=== PATIENT | male | born 1955 | race Caucasian/White ===

== ENCOUNTER 2016-06-09 15:59 | Emergency (ER) | payer OTHER ==
[~2016-06-09] VITALS: Ht 182.9 cm; Wt 136.1 kg
[~2016-06-09 15:59] MED LIST: DIAZEPAM5 MG PO; DILAUDID2 MG PO; ELIQUIS5 MG PO; GLIMEPIRIDE4 MG PO; JANUMET 1000 MG1 TAB PO; LISINOPRIL20 MG PO; LISINOPRIL30 MG PO; LISINOPRIL40 MG PO; LOPRESSOR 25MG25 MG PO; LYRICA150 MG PO; MIRALAX17 GM PO; NAPRELAN750 MG PO; NAPROXEN SODIU550 MG PO; OXYCODONE HCL30 MG PO; PRINIVIL10 MG PO; Senokot S PO; TOPROL XL25 MG PO; TRICOR 145 MG145 MG PO; VITAB121000 PO; [UNRECOGNIZED DRUG - OTHER] TOP
--- NOTE | 2016-06-09 17:02 | ED UPPER/LOWER EXTREMITY COMPL ---
History of Present Illness General Chief Complaint: Lower Extremity Problems Stated Complaint: LT LEG PAIN Source: patient Exam Limitations: no limitations Vital Signs & Intake/Output Vital Signs & Intake/Output Vital Signs Date Time Temp Pulse Resp B/P Pulse O2 O2 Flow FiO2 Ox Delivery Rate 06/09 1859 97.7 85 16 135/73 96 Room Air 06/09 1730 Room Air 06/09 1606 97.6 92 20 158/80 98 Room Air Allergies Coded Allergies: NO KNOWN ALLERGIES (06/09/16) Reconcile Medications Alprazolam 0.5 MG TABLET 1 TAB PO BID PRN ANXIETY (Reported) Apixaban (Eliquis) 5 MG TABLET 1 TAB PO BID BLOOD THINNER (Reported) Cephalexin 500 MG CAPSULE 1 CAP PO TID ANTIBIOTIC (Reported) Cephalexin (Keflex) 500 MG CAPSULE 1 CAP PO 4 TIMES/DAY CELLULITIS Fenofibrate Nanocrystallized (Fenofibrate) 145 MG TABLET 1 TAB PO DAILY TRIGLYCERIDES/CHOLESTEROL (Reported) Glimepiride 4 MG TABLET 1 TAB PO DAILY DM (Reported) Hydrochlorothiazide 25 MG TABLET 1 TAB PO DAILY EDEMA (Reported) Linagliptin (Tradjenta) 5 MG TABLET 1 TAB PO DAILY DM (Reported) Lisinopril 40 MG TABLET 1 TAB PO DAILY BP (Reported) Metoprolol Tartrate 25 MG TABLET 1 TAB PO BID HEART (Reported) Naproxen Sodium (Naprelan) 750 MG TBMP.24HR 1 TAB PO DAILY BURSITIS (Reported ) with food Oxycodone HCl 30 MG TABLET 1 TAB PO 4XDP PRN PAIN (Reported) Oxycodone HCl/Acetaminophen (Percocet 5-325 MG Tablet) 5 MG-325 MG TABLET 1-2 TAB PO Q6P PRN PAIN Pregabalin (Lyrica) 150 MG CAPSULE 2 CAP PO QPM NEUROPATHY (Reported) Sulfamethoxazole/Trimethoprim (Bactrim Ds Tablet) 800 MG-160 MG TABLET 1 TAB PO BID CELLULITIS Triage Note: TRIAGE: PT TO ER C/C PAIN AND WOUND TO L ANKLE. WAS TREATED WITH ABX 05/11/2016. FELT IT RETURNING 05/23 BUT STATES THE DOCTOR "DIDN'T WANT TO PHONE IN ANY PRESCRIPTION FOR HIM". SAW DR CASTRO THIS MORNING AND WAS REFERRED TO THE ER FOR EVAL OF "SEVERE CELLULITIS AND ULCERATION OF LEFT LEG AND FOR MANAGEMENT OF ACUTE HYPERGLYCEMIA IN THE SETTING OF ACUTE INFECTION". F/S WAS 379 IN THE MD OFFICE. PT WITH HX INCLUDING NIDDM. TAKES OXYCODONE 30 MG FOR PAIN CONTROL. Triage Nurses Notes Reviewed? yes Onset: Abrupt Duration: week(s): (1), constant, continues in ED Timing: recent history Severity: moderate HPI: 61-year-old male with a history of diabetes hypertension and chronic wounds to lower extremities comes in for further evaluation symptoms by primary care. Patient reports that he has a "wound on his left leg. It has been there since 2014 when he had a fracture in that leg. Patient reports that last week he had a low-grade temperature of 99.9 and his doctor started him on cephalexin. He reports that the swelling in the left lower leg has improved and looks at his normal baseline. Patient reports that he saw his primary today who sent him here for further evaluation. Denies any fever chills or vomiting or flulike symptoms currently. Patient reports that his leg looks however normally does. Denies any other associated symptoms. Patient also reports that he sees a vascular doctor for problems with his lower legs. (CASSI LINDQUIST) Past History Travel History Traveled to [place] past 21 day No Medical History Any Pertinent Medical History? 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 Carpal tunnel syndrome 2. Rotator cuff tear repair Psychosocial History Who do you live with Spouse What is your primary language Georgian Tobacco Use: Never used ETOH Use: denies use Illicit Drug Use: denies illicit drug use Family History Family History, If Any: FATHER (father of liver cancer). MOTHER (mother of adenocarcinoma). Hx Contributory? No (CASSI LINDQUIST) Review of Systems Review of Systems Constitutional: Reports: no symptoms. EENTM: Reports: no symptoms. Respiratory: Reports: no symptoms. Cardiovascular: Reports: no symptoms. Gastrointestinal/Abdominal: Reports: no symptoms. Genitourinary: Reports: no symptoms. Musculoskeletal: Reports: see HPI. Skin: Reports: see HPI. Neurological/Psychological: Reports: no symptoms. Hematologic/Endocrine: Reports: no symptoms. Immunological: Reports: no symptoms. All Other Systems: Reviewed and Negative (CASSI LINDQUIST) Physical Exam Physical Exam General Appearance: well developed/nourished Head: atraumatic Eyes: Bilateral: normal appearance. Ears, Nose, Throat: normal ENT inspection, hearing grossly normal Neck: normal inspection Cardiovascular/Respiratory: no respiratory distress Back: normal inspection Leg Right: left lower extremity shiny, erythematous, no warmth, large scab with some black tissue, decreased cap refill in bilateral lower feet, dorsalis pedis one plus, Skin: intact, normal color, warm/dry Lymphatic: no anterior cervical kathia (CASSI LINDQUIST) Progress Differential Diagnosis: arterial insufficiency, cellulitis, CHF, contusion, dislocation, fracture, gout, septic arthritis, sprain Plan of Care: Orders Procedure Date/time Status CBC WITHOUT DIFFERENTIAL 06/09 1700 Complete BASIC METABOLIC PANEL 06/09 1700 Complete Laboratory Tests 06/09/16 1716: Anion Gap 12, Estimated GFR > 60, BUN/Creatinine Ratio 24.2, Glucose 289 H, Calcium 9.6, CBC w Diff NO MAN DIFF REQ, RBC 4.48 L, MCV 90.8, MCH 30.3, RDW 13.6, MPV 13.1 H, Gran % 67.9, Lymphocytes % 18.7 L, Monocytes % 9.9 H, Eosinophils % 2.9, Basophils % 0.6, Absolute Granulocytes 4.1, Absolute Lymphocytes 1.1 L, Absolute Monocytes 0.6, Absolute Eosinophils 0.2, Absolute Basophils 0, PUBS MCHC 33.3 Departure Departure Disposition: HOME OR SELF CARE Condition: Stable Clinical Impression Primary Impression: Cellulitis of left lower extremity Referrals: DON CASTRO (PCP/Family) [facility] Additional Instructions: Take Bactrim and Keflex as prescribed. Take Percocet for pain. Follow-up with wound care center. Return immediately if any increased redness, fever or chills , vomiting, or any other concerns. It is extremely important that you follow up with wound care center. Please go over all results of today's visit with your primary care doctor. Contact your primary care doctor to let them know you were here in the emergency room. There may be nonspecific findings which may not be related to your visit today here in the emergency room but may require further evaluation and chronic monitoring by your primary care doctor. If you had a laceration today the chance of foreign body always remains. You should follow-up with your primary care doctor for recheck in 3-5 days for a wound check. If you had an x-ray done there is a chance that a fracture could have been missed on initial read and you should follow-up with your primary care doctor for repeat x-rays if symptoms persist. If your blood pressure was elevated here in the emergency room please have rechecked by her primary care doctor within the next 48 hours by your primary care doctor. If you were prescribed a narcotic here in the emergency room or any type of controlled substances you're not allowed to drive while taking this medication or operate any type of heavy machinery. Narcotics can make you feel lightheaded dizziness nausea and can cause constipation. You may need to slat pickler a stool softener. Thank you for choosing [facility] emergency room. Please return to the emergency room immediately if you have any other concerns worsening of symptoms. Departure Forms: Customer Survey General Discharge Information Prescriptions: Current Visit Scripts Cephalexin (Keflex) 1 CAP PO 4 TIMES/DAY #16 CAP Sulfamethoxazole/Trimethoprim (Bactrim Ds Tablet) 1 TAB PO BID #14 TAB Oxycodone HCl/Acetaminophen (Percocet 5-325 MG Tablet) 1-2 TAB PO Q6P PRN PAIN #15 TAB Comments 06/09/2016 7:30:45 PM Patient clinically looks well. Patient is nontoxic-appearing. Patient is in no apparent distress. Patient has diabetes and chronic wound healing issues as well as peripheral vascular disease. Wound is at his normal baseline. No white count. Afebrile. I do not feel patient requires admission at this time. Patient needs wound care. Patient may need stents in his leg but he is currently being evaluated by a vascular doctor and being worked up for that. No acute vascular compromise that is emergent tonight. Patient understands and agrees the plan of care. Follow-up wound care. Contact vascular doctor. Added Bactrim to antibiotics. (CASSI LINDQUIST) PA/BILLBOARD ERECTOR HELPER Co-Sign Statement Statement: ED Attending supervision documentation- [] I saw and evaluated the patient. I have also reviewed all the pertinent lab results and diagnostic results. I agree with the findings and the plan of care as documented in the PA's/BILLBOARD ERECTOR HELPER's documentation. [X] I have reviewed the ED Record and agree with the PA's/BILLBOARD ERECTOR HELPER's documentation. [] Additions or exceptions (if any) to the PAs/BILLBOARD ERECTOR HELPER's note and plan are summarized below: [] (IVANIA HERNANDEZ,TOM)
[2016-06-09] MEDS ORDERED: ELIQUIS5 M1 PO (17:03)
[2016-06-09] MEDS ORDERED: FENOFIBRATE145 M1 PO (17:04)
[2016-06-09] MEDS ORDERED: GLIMEPIRIDE4 M1 PO (17:04)
[2016-06-09] MEDS ORDERED: HYDROCHLOROTHIA25 M1 PO (17:05)
[2016-06-09] MEDS ORDERED: OXYCODONE HCL30 M1 PO (17:06)
[2016-06-09] MEDS ORDERED: LISINOPRIL40 M1 PO (17:06)
[2016-06-09] MEDS ORDERED: ALPRAZOLAM0.5 M4 PO (17:06)
[2016-06-09] MEDS ORDERED: TRADJENTA5 M1 PO (17:07)
[2016-06-09] MEDS ORDERED: METOPROLOL TART25 M1 PO (17:08)
[2016-06-09] MEDS ORDERED: NAPRELAN PO (17:08)
[2016-06-09] MEDS ORDERED: LYRICA150 M1 PO (17:09)
[2016-06-09] MEDS ORDERED: CEPHALEXIN500 M3 PO (17:10)
[2016-06-09 17:37] LABS: ABSOLUTE BASOPHIL COUNT 0 /CUMM (0.0-0.2); ABSOLUTE EOSINOPHIL COUNT 0.2 /CUMM (0.0-0.7); ABSOLUTE GRANULOCYTE CT 4.1 /CUMM (1.4-6.5); ABSOLUTE LYMPH COUNT 1.1 /CUMM (1.2-3.4); ABSOLUTE MONOCYTE COUNT 0.6 /CUMM (0.10-0.60); BASOPHIL % 0.6 % (0.0-2.0); EOSINOPHIL % 2.9 % (0-5); GRANULOCYTE % 67.9 % (42.2-75.2); HEMATOCRIT 40.7 % (42-52); MEAN CORPUSCULAR HGB 30.3 PG (27.0-31.0); MEAN CORPUSCULAR HGB CONC 33.3 G/DL (33.0-37.0); MEAN CORPUSCULAR VOLUME 90.8 FL (80.0-94.0); MEAN PLATELET VOLUME 13.1 FL (7.4-10.4); PLATELET COUNT 80 /CUMM (130-400); RBC DISTRIBUTION WIDTH 13.6 % (11.5-14.5); RED BLOOD CELL CT 4.48 /CUMM (4.70-6.10)
[2016-06-09] MEDS ORDERED: BACTRIM DS TAB1 EACH PO (18:48)
[2016-06-09] MEDS ORDERED: PERCOCET 5-3251 EACH PO (18:48)
[2016-06-09] MEDS ORDERED: KEFLEX500 M1 PO (18:48)
[2016-06-09 18:59] VITALS: BP 135/73
== END 2016-06-09 19:21 ==
LOC: ERH 15:59
PROVIDERS: Physician Assistant Medical
DX: L03.116 Cellulitis of left lower limb (principal)
CPT/HCPCS: 96365

== ENCOUNTER 2016-08-08 14:59 | Emergency (ER) | payer OTHER ==
[~2016-08-08] VITALS: Ht 185.4 cm; Wt 142.9 kg
[~2016-08-08 14:59] MED LIST changes: +ALPRAZOLAM0.5 M4 PO; +BACTRIM DS TAB1 EACH PO; +CEPHALEXIN500 M3 PO; +ELIQUIS5 M1 PO; +FENOFIBRATE145 M1 PO; +GLIMEPIRIDE4 M1 PO; +HYDROCHLOROTHIA25 M1 PO; +KEFLEX500 M1 PO; +LISINOPRIL40 M1 PO; +LYRICA150 M1 PO; +METOPROLOL TART25 M1 PO; +NAPRELAN PO; +OXYCODONE HCL30 M1 PO; +PERCOCET 5-3251 EACH PO; +TRADJENTA5 M1 PO
--- NOTE | 2016-08-08 15:41 | ED GENERAL ADULT ---
History of Present Illness General Chief Complaint: Lower Extremity Injury Stated Complaint: PT CAN'T WALK Source: patient Exam Limitations: no limitations Vital Signs & Intake/Output Vital Signs & Intake/Output Vital Signs Date Time Temp Pulse Resp B/P B/P Pulse O2 O2 Flow FiO2 Mean Ox Delivery Rate 08/08 1833 98.7 87 18 144/67 96 Room Air 08/08 1508 97.9 80 22 115/71 96 Allergies Coded Allergies: NO KNOWN ALLERGIES (06/09/16) Reconcile Medications Alprazolam 1 MG TABLET 2 TAB PO QPM SLEEP (Reported) Apixaban (Eliquis) 5 MG TABLET 1 TAB PO BID BLOOD THINNER (Reported) Fenofibrate Nanocrystallized (Fenofibrate) 145 MG TABLET 1 TAB PO DAILY TRIGLYCERIDES/CHOLESTEROL (Reported) Fluticasone Propionate (Flovent Diskus) 100 MCG BLST.W.DEV 1-2 PUF INH BID COUGH/RESPIRATORY (Reported) Glimepiride 4 MG TABLET 1 TAB PO DAILY DM (Reported) Hydrochlorothiazide 25 MG TABLET 1 TAB PO DAILY EDEMA (Reported) Linagliptin (Tradjenta) 5 MG TABLET 1 TAB PO DAILY DM (Reported) Metoprolol Tartrate 25 MG TABLET 1 TAB PO BID HEART (Reported) Oxycodone HCl 30 MG TABLET 1 TAB PO 4XDP PRN PAIN (Reported) Oxycodone HCl/Acetaminophen (Percocet 5-325 MG Tablet) 5 MG-325 MG TABLET 1 TAB PO BID PRN pain Pregabalin (Lyrica) 150 MG CAPSULE 2 CAP PO QPM NEUROPATHY (Reported) Valsartan (Diovan) 320 MG TABLET 1 TAB PO DAILY BP (Reported) Triage Note: PER PT CANT WALK L LEG PAINFUL ALTHOUGH PT DROVE TO ED, PER PT FX IT 2 YRS AGO THINKS, SCREWS AND JULITO ARE UNDONE Triage Nurses Notes Reviewed? yes Onset: 2 days ago Duration: constant, getting worse Timing: LLE fx 2 yrs ago Severity: severe Modifying Factors: Improves With: rest. Worsens With: movement. HPI: Patient is a 61-year-old male with a history of hypertension, hyperlipidemia, A. fib (on eliquis), and s/p palcement of orthopedic hardware to the LLE for prior fracture to the upper portion of the LLE 2 years ago (pt unsure what exactly was fx) presenting with bilateral leg pain and difficulty with ambulation 2 days. Patient reports pain began in his left thigh, began using his right leg more to compensate, subsequently developed right leg pain a day later. Patient ambulates with a walker at baseline, but reports he is recently been unable to ambulate. However states that he was able to tried himself to the ED today. Had recent imaging in the last 1-2 months with an orthopedist that showed "2 broken screws." Patient was asymptomatic at the time, orthopedist recommended no intervention at that time, and the patient should be evaluated pain developed. Denies any numbness or paresthesias. He has tried no medication for pain relief. Patient denies any recent falls trauma or etiology of his pain Patient does state that he was able to walk to his private vehicle drive to the emergency room. (GOKUL FISHER) Past History Travel History Traveled to [place] past 21 day No Medical History Any Pertinent Medical History? 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 Carpal tunnel syndrome 2. Rotator cuff tear repair Psychosocial History Who do you live with Spouse What is your primary language Bolivian Tobacco Use: Never used Family History Family History, If Any: FATHER (father of liver cancer). MOTHER (mother of adenocarcinoma). Hx Contributory? Yes (prior LLE fx) (GOKUL FISHER) Review of Systems Review of Systems Constitutional: Reports: no symptoms. EENTM: Reports: no symptoms. Respiratory: Reports: no symptoms. Cardiovascular: Reports: no symptoms. GI: Reports: no symptoms. Genitourinary: Reports: no symptoms. Musculoskeletal: Reports: muscle pain. Skin: Reports: no symptoms. Neurological/Psychological: Reports: no symptoms. Hematologic/Endocrine: Reports: no symptoms. Immunologic/Allergic: Reports: no symptoms. (GOKUL FISHER) Physical Exam Physical Exam General Appearance: well developed/nourished, no apparent distress Head: atraumatic Eyes: Bilateral: normal appearance. Respiratory: normal breath sounds, lungs clear Cardiovascular: regular rate/rhythm Peripheral Pulses: 2+ radial (R), 2+ radial (L) Extremities: on exam of both lower extremities there are no abrasions/ lacerations/signs of trauma, no point tenderness to palpation, unrestricted range of motion of bilateral hip and knee joints, sensation intact, decreased motor strength symmetrically, active reflexes, palpable distal pulses. There are venous stasis changes bilaterally. Neurologic/Psych: no motor/sensory deficits, awake, alert, oriented x 3 Skin: intact, normal color, warm/dry Comments: Left hip normal inspection generalized point tenderness noted, straight leg raise performed with pain Left knee normal inspection generalized point tenderness noted mild decrease active range of motion noted with extension and flexion. Left lower extremity dermatomes intact PEDAL pulse +2 Core Measures ACS in differential dx? No CVA/TIA Diagnosis: No Severe Sepsis Present: No Septic Shock Present: No (XOCHITL VENEGAS,GOKUL) Progress Differential Diagnoses I considered the following diagnoses in my evaluation of the patient: [FX, OA, CANCER] Plan of Care: Orders Procedure Date/time Status CT LOWER EXT WO IV CONTRAST 08/09 1747 Active Patient currently is resting comfortable no apparent distress and denies any recent trauma or mechanism of injury. X-rays were resulted and which discussed results with orthopedic Dr. Charlton would LIKE patient to obtain a CT of extremity and to follow-up in office. After CT scan was resulted I again called orthopedic Dr. Charlton who advised patient to follow up with his surgeon as patient has an appointment tomorrow. Patient has persisted walkers at home. Patient agrees with disposition and plan and has no questions (XOCHITL VENEGAS,GOKUL) Diagnostic Imaging: Viewed by Me: Radiology Read, CT Scan. Radiology Impression: SEE COMMENTS Initial ED EKG: none Comments: PATIENT: MARQUIS ENCINAS PRESENT AGE: 61 PATIENT ACCOUNT NO: [id number] : 56 LOCATION: [facility] ORDERING PHYSICIAN: GOKUL VENEGAS SERVICE DATE: 08/08/16 EXAM TYPE: CAT - CT LOWER EXT WO IV CONTRAST EXAMINATION: CT LOWER EXTREMITY WITHOUT CONTRAST, HIP AND FEMUR, LEFT CLINICAL INFORMATION: Status post ORIF left hip fracture. Now with pain. COMPARISON: Plain film exam left hip today. Left hip and femur 11/12/2014. TECHNIQUE: Axial images obtained through the left hip. Coronal and sagittal reformatted images performed at the CT scanner. DLP: 4181.41 mGy-cm. FINDINGS: Patient has had placement of a compression screw and a long segment intramedullary julito through the left femur. Two fixation screws at the distal intramedullary julito at the metadiaphysis of the femur. The fracture site involves the proximal femur. There is sclerosis at the fracture line and the fracture line remains radiolucent though irregular. The fracture is nonunited. There is no acute fracture line. No soft tissue hematoma or fluid collection. There is marked degenerative joint disease of the hip. There is joint space narrowing and spurring of acetabulum and femoral head. IMPRESSION: 1. Status post ORIF left proximal femoral fracture. The left femoral fracture is nonunited with sclerosis of the fracture margins. 2. No acute fracture line. DICTATED BY: LISA MATHIAS MD DATE/TIME DICTATED:08/08/161821 MACHINIST APPRENTICE WOOD:BRIANNA DATE/TIME TRANSCRIBED:08/08/161821 CONFIDENTIAL, DO NOT COPY WITHOUT APPROPRIATE AUTHORIZATION. PATIENT: MARQUIS ECNINAS PRESENT AGE: 61 PATIENT ACCOUNT NO: [id number] : 56 LOCATION: ER ORDERING PHYSICIAN: GOKUL VENEGAS SERVICE DATE: 08/08/16 EXAM TYPE: RAD - XRY-HIP 2-3 VIEWS, LEFT EXAMINATION: XR HIP, LEFT CLINICAL INFORMATION: Left lower extremity pain. Status post ORIF left hip 2 years ago COMPARISON: Left femur and left hip 11/12/2014 TECHNIQUE: Two views of the left hip. FINDINGS: Lungs demonstrate long stem intramedullary julito with compression screw in place. The distal portion of the intramedullary julito not visualized. The remainder of the hardware intact. No acute fracture. The previously seen proximal femoral fracture has healed with residual deformity. There is partial radiolucency through the base of the cortex at the medial side of the calcar. No abnormal periosteal reaction. There is marked degenerative joint disease of the hips with near complete loss of the joint space. There is spurring subchondral sclerosis of femoral head and acetabulum. IMPRESSION: Status post ORIF left femoral fracture. Healed proximal femoral shaft fracture with residual deformity. Marked degenerative joint disease of the left hip. PATIENT: MARQUIS ENCINAS PRESENT AGE: 61 PATIENT ACCOUNT NO: [id number] : 56 LOCATION: ER ORDERING PHYSICIAN: GOKUL VENEGAS SERVICE DATE: 08/08/16 EXAM TYPE: RAD - XRY-KNEE COMPLETE LEFT EXAMINATION: XR KNEE, LEFT CLINICAL INFORMATION: Left lower extremity pain, worse with ambulation. COMPARISON: Plain films of the left femur 11/12/2014. TECHNIQUE: 5 views of the left knee. FINDINGS: Multiple views of the left knee demonstrate a partially visualized mechanical hardware within the distal left femur related to prior open reduction and internal fixation of the left femur. 2 cortical screws are visualized traversing the intramedullary nail. The screws appear fractured relative to the prior examination. There is no visible fracture or dislocation of the distal femur or of the left knee. There are moderate to severe degenerative changes involving the left knee joint, most significant within the medial tibiofemoral compartment. No visible joint effusion. IMPRESSION: Partially visualized mechanical hardware related to open reduction and internal fixation of the left femur. Interval fracture to previously identified cortical screws traversing the distal aspect of the intramedullary nail. No visible fractures involving the distal left femur. Moderate to severe degenerative changes of the left knee joint. (GOKUL FISHER) Departure Departure Disposition: HOME OR SELF CARE Condition: Stable Clinical Impression Primary Impression: Left hip pain Secondary Impressions: Left knee pain Referrals: DON CASTRO (PCP/Family) Additional Instructions: As discussed tomorrow follow-up with your established orthopedic doctor as you have an appointment. Begin the prescription of Percocet for pain, prescriptions waiting a [facility] [place]. Continue to use a walker for fall prevention. If symptoms worsen return to emergency room. Please provide your orthopedic doctor with copies of CT scan and x-ray Departure Forms: Customer Survey General Discharge Information Prescriptions: Current Visit Scripts Oxycodone HCl/Acetaminophen (Percocet 5-325 MG Tablet) 1 TAB PO BID PRN pain #12 TAB (GOKUL FISHER) PA/BELT CHANGER Co-Sign Statement Statement: ED Attending supervision documentation- [X] I saw and evaluated the patient. I have also reviewed all the pertinent lab results and diagnostic results. I agree with the findings and the plan of care as documented in the PA's/BELT CHANGER's documentation. [X] I have reviewed the ED Record and agree with the PA's/BELT CHANGER's documentation. [] Additions or exceptions (if any) to the PAs/BELT CHANGER's note and plan are summarized below: [] (DIDIER HERNANDEZ,CAPO Boyd) Critical Care Note Critical Care Note Critical Care Time: non-applicable (GOKUL FISHER)
--- NOTE | 2016-08-08 17:10 | RADIOLOGY REPORT ---
EXAMINATION: XR HIP, LEFT CLINICAL INFORMATION: Left lower extremity pain. Status post ORIF left hip 2 years ago COMPARISON: Left femur and left hip 11/12/2014 TECHNIQUE: Two views of the left hip. FINDINGS: Lungs demonstrate long stem intramedullary francisca with compression screw in place. The distal portion of the intramedullary francisca not visualized. The remainder of the hardware intact. No acute fracture. The previously seen proximal femoral fracture has healed with residual deformity. There is partial radiolucency through the base of the cortex at the medial side of the calcar. No abnormal periosteal reaction. There is marked degenerative joint disease of the hips with near complete loss of the joint space. There is spurring subchondral sclerosis of femoral head and acetabulum. IMPRESSION: Status post ORIF left femoral fracture. Healed proximal femoral shaft fracture with residual deformity. Marked degenerative joint disease of the left hip.
--- NOTE | 2016-08-08 17:28 | RADIOLOGY REPORT ---
EXAMINATION: XR KNEE, LEFT CLINICAL INFORMATION: Left lower extremity pain, worse with ambulation. COMPARISON: Plain films of the left femur 11/12/2014. TECHNIQUE: 5 views of the left knee. FINDINGS: Multiple views of the left knee demonstrate a partially visualized mechanical hardware within the distal left femur related to prior open reduction and internal fixation of the left femur. 2 cortical screws are visualized traversing the intramedullary nail. The screws appear fractured relative to the prior examination. There is no visible fracture or dislocation of the distal femur or of the left knee. There are moderate to severe degenerative changes involving the left knee joint, most significant within the medial tibiofemoral compartment. No visible joint effusion. IMPRESSION: Partially visualized mechanical hardware related to open reduction and internal fixation of the left femur. Interval fracture to previously identified cortical screws traversing the distal aspect of the intramedullary nail. No visible fractures involving the distal left femur. Moderate to severe degenerative changes of the left knee joint.
[2016-08-08] MEDS ORDERED: DIOVAN320 M1 PO (18:25)
[2016-08-08] MEDS ORDERED: ALPRAZOLAM1 M2 PO (18:26)
[2016-08-08] MEDS ORDERED: FLOVENT DISKU100 MCG INH (18:26)
[2016-08-08 18:33] VITALS: BP 144/67
--- NOTE | 2016-08-08 18:38 | CT SCAN REPORT ---
EXAMINATION: CT LOWER EXTREMITY WITHOUT CONTRAST, HIP AND FEMUR, LEFT CLINICAL INFORMATION: Status post ORIF left hip fracture. Now with pain. COMPARISON: Plain film exam left hip today. Left hip and femur 11/12/2014. TECHNIQUE: Axial images obtained through the left hip. Coronal and sagittal reformatted images performed at the CT scanner. DLP: 4181.41 mGy-cm. FINDINGS: Patient has had placement of a compression screw and a long segment intramedullary francisca through the left femur. Two fixation screws at the distal intramedullary francisca at the metadiaphysis of the femur. The fracture site involves the proximal femur. There is sclerosis at the fracture line and the fracture line remains radiolucent though irregular. The fracture is nonunited. There is no acute fracture line. No soft tissue hematoma or fluid collection. There is marked degenerative joint disease of the hip. There is joint space narrowing and spurring of acetabulum and femoral head. IMPRESSION: 1. Status post ORIF left proximal femoral fracture. The left femoral fracture is nonunited with sclerosis of the fracture margins. 2. No acute fracture line.
[2016-08-08] MEDS ORDERED: PERCOCET 5-3251 EACH PO (19:09)
== END 2016-08-08 19:15 ==
LOC: ERH 14:59
DX: M25.552 Pain in left hip (principal)
CPT/HCPCS: 73502-LT; 73562-LT

== ENCOUNTER 2017-03-31 03:29 | Emergency (ER) | payer OTHER ==
[~2017-03-31] VITALS: Ht 185.4 cm; Wt 136.1 kg
[~2017-03-31 03:29] MED LIST changes: +ALPRAZOLAM1 M2 PO; +DIOVAN320 M1 PO; +FLOVENT DISKU100 MCG INH
--- NOTE | 2017-03-31 03:41 | ED THROAT/DENTAL COMPLAINT ---
History of Present Illness General Chief Complaint: Sore Throat, Dental Pain Stated Complaint: DENTAL PAIN, ABSCESS PER PT Source: patient Exam Limitations: no limitations Vital Signs & Intake/Output Vital Signs & Intake/Output Vital Signs Date Time Temp Pulse Resp B/P B/P Pulse O2 O2 Flow FiO2 Mean Ox Delivery Rate 03/31 0400 97.2 70 20 144/77 97 Room Air Allergies Coded Allergies: NO KNOWN ALLERGIES (06/09/16) Reconcile Medications Alprazolam 1 MG TABLET 2 TAB PO QPM SLEEP (Reported) Apixaban (Eliquis) 5 MG TABLET 1 TAB PO BID BLOOD THINNER (Reported) Fenofibrate Nanocrystallized (Fenofibrate) 145 MG TABLET 1 TAB PO DAILY TRIGLYCERIDES/CHOLESTEROL (Reported) Glimepiride 4 MG TABLET 1 TAB PO DAILY DM (Reported) Hydrochlorothiazide 25 MG TABLET 1 TAB PO DAILY EDEMA (Reported) Linagliptin (Tradjenta) 5 MG TABLET 1 TAB PO DAILY DM (Reported) Metoprolol Tartrate 25 MG TABLET 1 TAB PO BID HEART (Reported) Oxycodone HCl 30 MG TABLET 1 TAB PO 4XDP PRN PAIN (Reported) Pregabalin (Lyrica) 150 MG CAPSULE 2 CAP PO QPM NEUROPATHY (Reported) Sulfamethoxazole/Trimethoprim (Bactrim Ds Tablet) 800 MG-160 MG TABLET 1 TAB PO BID cellulitis Valsartan (Diovan) 320 MG TABLET 1 TAB PO DAILY BP (Reported) Triage Nurses Notes Reviewed? yes Onset: Gradual Duration: hour(s):, constant, continues in ED, getting worse Severity: severe HPI: Patient presents for a possible dental abscess. Patient states he's had a similar abscess once before and was treated with amoxicillin. He has contacted his dentist but can't be seen until April 11. He denies any trouble swallowing fever or cold symptoms. He denies reactive lymphadenopathy. He has tried scope without improvement. Past History Travel History Traveled to [place] past 21 day No Medical History Any Pertinent Medical History? 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 Carpal tunnel syndrome 2. Rotator cuff tear repair Psychosocial History Who do you live with Spouse What is your primary language Hungarian Family History Family History, If Any: FATHER (father of liver cancer). MOTHER (mother of adenocarcinoma). Hx Contributory? No Review of Systems Review of Systems Constitutional: Reports: no symptoms. EENTM: Reports: see HPI. Respiratory: Reports: no symptoms. Cardiovascular: Reports: no symptoms. GI: Reports: no symptoms. Genitourinary: Reports: no symptoms. Musculoskeletal: Reports: no symptoms. Skin: Reports: no symptoms. Neurological/Psychological: Reports: no symptoms. Hematologic/Endocrine: Reports: no symptoms. Immunologic/Allergic: Reports: no symptoms. All Other Systems: Reviewed and Negative Physical Exam Physical Exam Mouth/Throat: SEE BELOW Comments: Gen.: Well-nourished, well-developed, no acute respiratory distress. Head: Normocephalic, atraumatic. Eyes: Normal inspection bilaterally Ears: Normal inspection bilaterally Nose: Normal inspection Face: Nontender to percussion Throat/mouth : Moist mucosa, poor dentition with multiple heavily decayed teeth, no obvious dental abscess. Gingivitis present. No Dominik's angina. Neck: Supple, full range of motion, no goiter, no stridor Lungs: Quiet respirations Back: Normal range of motion Extremities: Normal range of motion grossly, no cyanosis clubbing or edema of the upper extremities Neurologic: Cranial nerves grossly intact, speech is clear Skin: warm and dry Psychiatric: Calm, cooperative, no apparent delusions or hallucinations Lymphatic: No cervical or submental lymphadenopathy Core Measures ACS in differential dx? No Sepsis Present: No Sepsis Focused Exam Completed? No Progress Differential Diagnosis: carious tooth, Ludwigs angina, odontogenic abscess, tooth fracture Plan of Care: See discharge instructions Departure Departure Disposition: HOME OR SELF CARE Condition: Stable Clinical Impression Primary Impression: Dental abscess Secondary Impressions: Carious teeth Referrals: Alyson Sims APRN (PCP/Family) Additional Instructions: Amoxicillin as prescribed. Follow-up with your dentist as soon as possible for reevaluation. Return if any concerns or sudden worsening. Thank you for choosing the [facility] for your care. It was a pleasure to serve you today. Noe Nogueira M.D. [facility] Departure Forms: Customer Survey General Discharge Information Prescriptions: Current Visit Scripts Amoxicillin 1 CAP PO TID #30 CAP
[2017-03-31 04:00] VITALS: BP 144/77
[2017-03-31] MEDS ORDERED: AMOXICILLIN500 M2 PO (04:07)
== END 2017-03-31 04:36 ==
LOC: ERH 03:29
DX: K04.7 Periapical abscess without sinus (principal); K02.9 Dental caries, unspecified

== ENCOUNTER 2017-08-04 03:50 | Emergency (ER) | payer OTHER ==
[~2017-08-04] VITALS: Ht 185.4 cm; Wt 140.6 kg
[~2017-08-04 03:50] MED LIST changes: +AMOXICILLIN500 M2 PO
--- NOTE | 2017-08-04 03:58 | ED UPPER/LOWER EXTREMITY COMPL ---
History of Present Illness General Chief Complaint: Laceration Procedure Stated Complaint: PT C/O LT TOE LAC "WON'T STOP BLEEDING" HX DIABETI Source: patient Exam Limitations: no limitations Vital Signs & Intake/Output Vital Signs & Intake/Output Vital Signs Date Time Temp Pulse Resp B/P B/P Pulse O2 O2 Flow FiO2 Mean Ox Delivery Rate 08/04 0359 96.8 65 18 149/76 98 Room Air Allergies Coded Allergies: NO KNOWN ALLERGIES (06/09/16) Reconcile Medications Alprazolam 1 MG TABLET 2 TAB PO QPM SLEEP (Reported) Amoxicillin 500 MG CAPSULE 1 CAP PO TID DENTAL ABSCESS Apixaban (Eliquis) 5 MG TABLET 1 TAB PO BID BLOOD THINNER (Reported) Fenofibrate Nanocrystallized (Fenofibrate) 145 MG TABLET 1 TAB PO DAILY TRIGLYCERIDES/CHOLESTEROL (Reported) Glimepiride 4 MG TABLET 1 TAB PO DAILY DM (Reported) Hydrochlorothiazide 25 MG TABLET 1 TAB PO DAILY EDEMA (Reported) Linagliptin (Tradjenta) 5 MG TABLET 1 TAB PO DAILY DM (Reported) Metoprolol Tartrate 25 MG TABLET 1 TAB PO BID HEART (Reported) Oxycodone HCl 30 MG TABLET 1 TAB PO 4XDP PRN PAIN (Reported) Pregabalin (Lyrica) 150 MG CAPSULE 2 CAP PO QPM NEUROPATHY (Reported) Sulfamethoxazole/Trimethoprim (Bactrim Ds Tablet) 800 MG-160 MG TABLET 1 TAB PO BID cellulitis Valsartan (Diovan) 320 MG TABLET 1 TAB PO DAILY BP (Reported) Triage Nurses Notes Reviewed? yes Onset: Gradual Duration: hour(s): Timing: recent history Severity: mild Pain/Injury Location: Left: 2nd toe. Method of Injury: laceration Modifying Factors: Improves With: rest. Associated Symptoms: bleeding HPI: 62 yo gentleman h/o afib on eliquis and diabetes, presents with left 2nd toe laceration. "The nail of the big toe rubbed up against the second toe and that's when the bleeding started." He notes no other trauma. The bleeding lasted several hours. He has no pain. Past History Travel History Traveled to [place] past 21 day No Medical History Any Pertinent Medical History? 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 Carpal tunnel syndrome 2. Rotator cuff tear repair Psychosocial History Who do you live with Spouse What is your primary language Luxembourgish Family History Family History, If Any: FATHER (father of liver cancer). MOTHER (mother of adenocarcinoma). Hx Contributory? No Review of Systems Review of Systems Constitutional: Reports: no symptoms. EENTM: Reports: no symptoms. Respiratory: Reports: no symptoms. Cardiovascular: Reports: no symptoms. Gastrointestinal/Abdominal: Reports: no symptoms. Genitourinary: Reports: no symptoms. Musculoskeletal: Reports: no symptoms. Skin: Reports: no symptoms. Neurological/Psychological: Reports: no symptoms. Hematologic/Endocrine: Reports: no symptoms. Immunological: Reports: no symptoms. All Other Systems: Reviewed and Negative Physical Exam Physical Exam General Appearance: well developed/nourished, mild distress Head: atraumatic Neck: normal inspection Cardiovascular/Respiratory: no respiratory distress Foot Left: 2nd digit with 0.5cm abrasion, near nail bed. no sign of infection, mild oozing blood. non tender. , no sign of infection Progress Differential Diagnosis: laceration vs other. Plan of Care: abrasion repaired with dermabond and steristrips with excellent result. Departure Departure Disposition: HOME OR SELF CARE Condition: Stable Clinical Impression Primary Impression: Toe laceration Referrals: Alyson Sims APRN (PCP/Family) Departure Forms: Customer Survey General Discharge Information Procedures Laceration/Wound Repair Laceration/Wound Repair: Wound Location: left 2nd digit Wound's Depth, Shape: 0.5cm simple laceration, superficial Wound Length (cm): 0.5 Irrigated w/ Saline (ccs): 200 Wound Repaired With: Steri-strips, Dermabond Tetanus Status: up to date
[2017-08-04 03:59] VITALS: BP 149/76
== END 2017-08-04 04:26 ==
LOC: ERH 03:50
DX: S91.115A Laceration without foreign body of left lesser toe(s) without damage to nail, initial encounter (principal); X58.XXXA Exposure to other specified factors, initial encounter; Y92.9 Unspecified place or not applicable; Y93.9 Activity, unspecified